=== PATIENT | female | born 1945 | race Hispanic/Latino ===

== ENCOUNTER 2018-06-01 06:45 | Day surgery (SDC) | payer MEDICARE ==
[2018-05-30 15:40] VITALS: BP 184/67
[2018-05-30 16:01] LABS: BASOPHILS % (AUTO) 0.6 % (0.0-5.0); EOSINOPHILS % (AUTO) 2.8 % (0.0-8.0); HEMATOCRIT 33.2 % (36-48); LYMPHOCYTES % (AUTO) 25.7 % (21.0-51.0); MEAN CORPUSCULAR HEMOGLOBIN 31.6 pg (27.0-33.0); MEAN CORPUSCULAR HGB CONC 34.1 g/dL (32.0-36.0); MEAN CORPUSCULAR VOLUME 92.6 fL (79-99); MONOCYTES % (AUTO) 5.5 % (3.0-13.0); NEUTROPHILS % (AUTO) 65.4 % (40.0-77.0); PLATELET COUNT (AUTO) 188 K/uL (130-400); RED BLOOD CELL COUNT(AUTO) 3.59 MIL/uL (4.00-5.50); RED CELL DISTRIBUTION WIDTH 12.9 % (11.0-15.5); WHITE BLOOD COUNT (AUTO) 5.7 K/uL (4.8-10.8)
[2018-05-30 16:05] LABS: APPEARANCE,URINE Clear (CLEAR); BILIRUBIN,URINE Negative (NEGATIVE); COLOR,URINE Yellow (YELLOW); GLUCOSE, URINE (UA) Negative (NEGATIVE); KETONES,URINE Negative (NEGATIVE); LEUKOCYTE ESTERASE ,URINE Trace (NEGATIVE); NITRATE,URINE Negative (NEGATIVE); OCCULT BLOOD,URINE Negative (NEGATIVE); PROTEIN,URINE Negative (NEGATIVE); UROBILINOGEN,URINE 0.2 mg/dL (0.2-1.0)
[2018-05-30 16:13] LABS: CREATININE 1.1 mg/dL (0.5-1.5); POTASSIUM 4.9 mmol/L (3.5-5.1)
[2018-05-30 16:18] LABS: INR 0.94 (0.85-1.15); PARTIAL THROMBOPLASTIN TIME 28.6 SEC (26.3-35.5); PROTHROMBIN TIME 9.9 SEC (9.6-11.6)
[2018-05-30 16:43] LABS: RBC,URINE 0-1 /HPF (0-1)
[2018-05-30 16:44] LABS: BACTERIA,URINE Rare /HPF (None Seen); SQUAMOUS EPITHELIAL CELL,UR None Seen /HPF (0-2)
[2018-06-01] VITALS (17 sets, daily range): BP systolic 119–151; BP diastolic 40–79
[~2018-06-01] VITALS: Ht 154.9 cm; Wt 74.7 kg
[~2018-06-01 06:45] MED LIST: AEC81 PO; ATOR10TA69 PO; CARV6.25 PO; CITA10TA7 PO; ISOS30TA6 PO; LISI40TA4 PO; METF-444 PO; SODIUM CHLORIDE 0.9% 500ML 500 ML IV SCH
[2018-06-01] MEDS ORDERED: SODIUM CHLORIDE 0.9% 1000ML 1,000 ML IV ONE (07:18)
[2018-06-01] MEDS ORDERED: NITROGLYCERIN 5 MG/ML 10 ML VIAL IV ONE (09:29)
[2018-06-01] MEDS ORDERED: IOHEXOL-350 50ML VIAL IV ONE (09:29)
[2018-06-01] MEDS ORDERED: LIDOCAINE HCL 2% 20ML ONE (09:29)
[2018-06-01] MEDS ORDERED: IOHEXOL 350 MG/ML 100ML INFUS..BTL IV ONE (09:29)
[2018-06-01] MEDS ORDERED: HEPARIN SODIUM 1000UNIT/ML 10ML VIAL ONE (10:11)
[2018-06-01] MEDS ORDERED: LABETALOL HCL 5 MG/ML 20ML VIAL IV ONE (10:32)
[2018-06-01] MEDS ORDERED: SODIUM CHLORIDE 0.9% 1000ML 1,000 ML IV SCH (10:42)
[2018-06-01] MEDS ORDERED: HYDRALAZINE HCL 20 MG/ML VIAL IV PRN (10:45)
[2018-06-01] MEDS ORDERED: GLUCAGON 1MG KIT 1 MG ML IM PRN (10:45)
[2018-06-01] MEDS ORDERED: DEXTROSE 50%-WATER 50 ML DISP.SYRIN IV PRN (10:45)
[2018-06-01] MEDS ORDERED: INSULIN HUMULIN R 100 UNIT/ML 3ML SQ SCH (11:30)
== END 2018-06-01 15:45 | disposition home or self-care (01) ==
LOC: DAH 06:45
PROVIDERS: ATTEND Internal Medicine Cardiovascular Disease
DX: I25.118 Atherosclerotic heart disease of native coronary artery with other forms of angina pectoris (principal); I11.0 Hypertensive heart disease with heart failure; I50.33 Acute on chronic diastolic (congestive) heart failure; I05.0 Rheumatic mitral stenosis; Z68.30 Body mass index [BMI] 30.0-30.9, adult; E11.9 Type 2 diabetes mellitus without complications; E78.5 Hyperlipidemia, unspecified; Z79.899 Other long term (current) drug therapy; Z79.84 Long term (current) use of oral hypoglycemic drugs; Z95.0 Presence of cardiac pacemaker; I87.2 Venous insufficiency (chronic) (peripheral)
CPT/HCPCS: 36415; 71045; 80048; 81001; 82948 ×2; 85025; 85610; 85730; 93005; 93460; A4606; C1894 ×3; J1644 ×2; J3490 ×3; J7030; Q9965; Q9967 ×2

== ENCOUNTER 2022-05-04 07:24 | Observation (INO) | payer OTHER, MEDICARE ==
[2022-05-02 16:06] LABS: BASOPHILS % (AUTO) 0.9 % (0.0-5.0); EOSINOPHILS % (AUTO) 1.4 % (0.0-8.0); HEMATOCRIT 36.9 % (36-48); LYMPHOCYTES % (AUTO) 9.8 % (21.0-51.0); MEAN CORPUSCULAR HEMOGLOBIN 30.2 pg (27.0-33.0); MEAN CORPUSCULAR HGB CONC 30.9 g/dL (32.0-36.0); MEAN CORPUSCULAR VOLUME 97.9 fL (79-99); MONOCYTES % (AUTO) 4.9 % (3.0-13.0); NEUTROPHILS % (AUTO) 82.6 % (40.0-77.0); PLATELET COUNT (AUTO) 224 K/uL (130-400); RED BLOOD CELL COUNT(AUTO) 3.77 MIL/uL (4.00-5.50); RED CELL DISTRIBUTION WIDTH 14.7 % (11.0-15.5); WHITE BLOOD COUNT (AUTO) 5.7 K/uL (4.8-10.8)
[2022-05-02 16:18] LABS: INR 1.06 (0.85-1.15); PROTHROMBIN TIME 11.5 SEC (9.6-11.6)
[2022-05-02 16:19] LABS: CREATININE 1.5 mg/dL (0.5-1.5)
[2022-05-02 16:20] LABS: PARTIAL THROMBOPLASTIN TIME 29.1 SEC (26.3-35.5)
[2022-05-03 12:03] VITALS: BP 162/62
[~2022-05-04] VITALS: Ht 152.4 cm; Wt 62.9 kg
[2022-05-04] VITALS (17 sets, daily range): BP systolic 123–176; BP diastolic 50–98
[~2022-05-04 07:24] MED LIST changes: +ALEN70TA80 PO; -CARV6.25 PO; -CITA10TA7 PO; +CITA10TA89 PO; +DOCU100C33 PO; +FERS325 PO; +FURO20TA4 PO; -ISOS30TA6 PO; +ISOS30TA92 PO; -LISI40TA4 PO; +LISI40TA9 PO; -METF-444 PO; +POTA10CA44 PO; -SODIUM CHLORIDE 0.9% 500ML 500 ML IV SCH
[2022-05-04] MEDS ORDERED: 0.9%NACL 1000ML 1,000 ML IV ONE (08:04)
[2022-05-04] MEDS ORDERED: LIDOCAINE HCL 1% 20 ML VIAL ONE (11:25)
[2022-05-04] MEDS ORDERED: MEPERIDINE-PF 25 MG/ML SYG ONE ×2 (11:26→12:38)
[2022-05-04] MEDS ORDERED: MIDAZOLAM HCL 1 MG/ML 2ML VIAL ONE ×2 (11:26→12:38)
[2022-05-04] MEDS ORDERED: BUPIVACAINE/PF 0.25% 30ML VIAL IJ ONE (11:26)
[2022-05-04] MEDS ORDERED: CEFAZOLIN SODIUM 1 GM VIAL ONE (11:26)
[2022-05-04] MEDS ORDERED: BACITRACIN 1 EACH PACKET TP ONE (13:08)
[2022-05-04] MEDS ORDERED: TRAM50TA4 PO (13:53)
[2022-05-04] MEDS ORDERED: ACETAMINOPHEN 500 MG TABLET PO PRN (14:00)
[2022-05-04] MEDS ORDERED: ACETAMINOPHEN WITH CODEINE 1 TAB TAB PO PRN (14:00)
[2022-05-04] MEDS ORDERED: FUROSEMIDE 20MG VIAL ONE (16:44)
[2022-05-04] MEDS ORDERED: FUROSEMIDE 20MG VIAL IV ONE (17:00)
[2022-05-04] MEDS ORDERED: DOCUSATE SODIUM 100 MG CAP PO PRN (17:00)
[2022-05-04] MEDS ORDERED: TRAMADOL HCL 50 MG TABLET PO PRN (17:00)
[2022-05-04 18:25] LABS: HEMATOCRIT 34.3 % (36-48); MEAN CORPUSCULAR HEMOGLOBIN 30.4 pg (27.0-33.0); MEAN CORPUSCULAR HGB CONC 31.8 g/dL (32.0-36.0); MEAN CORPUSCULAR VOLUME 95.5 fL (79-99); PLATELET COUNT (AUTO) 201 K/uL (130-400); RED BLOOD CELL COUNT(AUTO) 3.59 MIL/uL (4.00-5.50); RED CELL DISTRIBUTION WIDTH 14.8 % (11.0-15.5); WHITE BLOOD COUNT (AUTO) 7.1 K/uL (4.8-10.8)
[2022-05-04 18:35] LABS: BASOPHILS % (AUTO) 0.6 % (0.0-5.0); LYMPHOCYTES % (AUTO) 6.6 % (21.0-51.0); MONOCYTES % (AUTO) 3.9 % (3.0-13.0); NEUTROPHILS % (AUTO) 87.6 % (40.0-77.0)
[2022-05-04 18:51] LABS: ALBUMIN 3.2 g/dL (3.5-5.0); CREATININE 1.5 mg/dL (0.5-1.5); POTASSIUM 4.6 mmol/L (3.5-5.1); THYROID STIMULATING HORMONE 9.35 uIU/mL (0.36-3.74); TOTAL PROTEIN, SERUM 7.2 g/dL (6.0-8.3)
[2022-05-04 19:12] LABS: HEMOGLOBIN A1C 6.7 % (4.0-6.0)
[2022-05-04] MEDS: BUDESONIDE 0.25 MG/2 ML INH IH SCH (19:57)
[2022-05-04] MEDS: FERROUS SULFATE 325 MG TABLET.DR PO SCH (20:22)
[2022-05-04] MEDS: ATORVASTATIN 10 MG TABLET PO SCH (20:22)
[2022-05-04] MEDS: CITALOPRAM 20 MG TABLET PO SCH (20:22)
[2022-05-04] MEDS: IPRATROPIUM/ALBUTEROL SULFATE 3 ML SOLUTION IH SCH (23:02)
[2022-05-05 03:59] LABS: BASOPHILS % (AUTO) 1.2 % (0.0-5.0); EOSINOPHILS % (AUTO) 1.4 % (0.0-8.0); HEMATOCRIT 33.9 % (36-48); LYMPHOCYTES % (AUTO) 11.1 % (21.0-51.0); MEAN CORPUSCULAR HEMOGLOBIN 30.1 pg (27.0-33.0); MEAN CORPUSCULAR HGB CONC 31.3 g/dL (32.0-36.0); MEAN CORPUSCULAR VOLUME 96.3 fL (79-99); MONOCYTES % (AUTO) 4.9 % (3.0-13.0); NEUTROPHILS % (AUTO) 81.2 % (40.0-77.0); PLATELET COUNT (AUTO) 195 K/uL (130-400); RED BLOOD CELL COUNT(AUTO) 3.52 MIL/uL (4.00-5.50); RED CELL DISTRIBUTION WIDTH 14.7 % (11.0-15.5); WHITE BLOOD COUNT (AUTO) 4.9 K/uL (4.8-10.8)
[2022-05-05 04:11] LABS: CREATININE 1.4 mg/dL (0.5-1.5); MAGNESIUM 2.1 mg/dL (1.80-2.40); PHOSPHORUS 3.8 mg/dL (2.5-4.9); POTASSIUM 4.3 mmol/L (3.5-5.1)
[2022-05-05 05:17] VITALS: BP 151/79
[2022-05-05] MEDS: IPRATROPIUM/ALBUTEROL SULFATE 3 ML SOLUTION IH SCH ×4 (06:29→23:02)
[2022-05-05] MEDS: BUDESONIDE 0.25 MG/2 ML INH IH SCH ×2 (06:30→19:38)
[2022-05-05 07:00] VITALS: BP 136/68
[2022-05-05] MEDS: FUROSEMIDE 40MG VIAL IV SCH ×2 (09:17→21:12)
[2022-05-05] MEDS: ASPIRIN 81 MG EC TAB PO SCH (09:18)
[2022-05-05] MEDS: LISINOPRIL 40 MG TABLET PO SCH (09:18)
[2022-05-05] MEDS: POTASSIUM CHLORIDE 10MEQ SR TAB PO SCH (09:18)
[2022-05-05] MEDS: ISOSORBIDE MONO 30MG SR TAB PO SCH (09:18)
[2022-05-05 11:00] VITALS: BP 139/63
[2022-05-05] MEDS ORDERED: CLOPIDOGREL 300MG TAB PO SCH (11:00)
[2022-05-05] MEDS: HEPARIN 5,000 UNIT VIAL SQ SCH ×2 (12:42→19:41)
[2022-05-05 16:00] VITALS: BP 139/55
[2022-05-05] MEDS: FERROUS SULFATE 325 MG TABLET.DR PO SCH (19:40)
[2022-05-05] MEDS: CITALOPRAM 20 MG TABLET PO SCH (19:40)
[2022-05-05] MEDS: ATORVASTATIN 10 MG TABLET PO SCH (19:41)
[2022-05-05 20:32] VITALS: BP 143/68
[2022-05-06 00:17] VITALS: BP 147/60
[2022-05-06] MEDS: HEPARIN 5,000 UNIT VIAL SQ SCH ×2 (02:48→10:18)
[2022-05-06 03:47] LABS: BASOPHILS % (AUTO) 0.7 % (0.0-5.0); EOSINOPHILS % (AUTO) 2.3 % (0.0-8.0); HEMATOCRIT 31.5 % (36-48); LYMPHOCYTES % (AUTO) 9.5 % (21.0-51.0); MEAN CORPUSCULAR HEMOGLOBIN 30.2 pg (27.0-33.0); MEAN CORPUSCULAR HGB CONC 31.1 g/dL (32.0-36.0); MEAN CORPUSCULAR VOLUME 96.9 fL (79-99); MONOCYTES % (AUTO) 5.6 % (3.0-13.0); NEUTROPHILS % (AUTO) 81.5 % (40.0-77.0); PLATELET COUNT (AUTO) 200 K/uL (130-400); RED BLOOD CELL COUNT(AUTO) 3.25 MIL/uL (4.00-5.50); RED CELL DISTRIBUTION WIDTH 14.7 % (11.0-15.5); WHITE BLOOD COUNT (AUTO) 5.6 K/uL (4.8-10.8)
[2022-05-06 04:00] LABS: CREATININE 1.6 mg/dL (0.5-1.5); POTASSIUM 3.8 mmol/L (3.5-5.1)
[2022-05-06 04:20] VITALS: BP 141/61
[2022-05-06] MEDS: IPRATROPIUM/ALBUTEROL SULFATE 3 ML SOLUTION IH SCH ×2 (07:07→11:57)
[2022-05-06] MEDS: BUDESONIDE 0.25 MG/2 ML INH IH SCH (07:07)
[2022-05-06 08:00] VITALS: BP 149/68
[2022-05-06] MEDS ORDERED: CLOPIDOGREL 75MG TAB PO SCH (09:00)
[2022-05-06] MEDS: ISOSORBIDE MONO 30MG SR TAB PO SCH (10:08)
[2022-05-06] MEDS: FUROSEMIDE 40MG VIAL IV SCH (10:08)
[2022-05-06] MEDS: ASPIRIN 81 MG EC TAB PO SCH (10:08)
[2022-05-06] MEDS: LISINOPRIL 40 MG TABLET PO SCH (10:08)
[2022-05-06] MEDS: POTASSIUM CHLORIDE 10MEQ SR TAB PO SCH (10:08)
[2022-05-06 11:46] VITALS: BP 135/54
[2022-05-06] MEDS ORDERED: FURO20TA6 PO (15:08)
[2022-05-06] MEDS ORDERED: CLOP75TA14 PO (15:08)
[2022-05-07] MEDS ORDERED: FUROSEMIDE 20 MG TABLET PO SCH (09:00)
== END 2022-05-06 16:06 | disposition home or self-care (01) ==
LOC: DAH 07:24 → DAHIP 07:25 → DAH 07:25 → 2AH 17:12
PROVIDERS: ADMIT Internal Medicine; ATTEND Internal Medicine
DX: I25.10 Atherosclerotic heart disease of native coronary artery without angina pectoris (principal); I49.5 Sick sinus syndrome; I35.0 Nonrheumatic aortic (valve) stenosis; I05.0 Rheumatic mitral stenosis; I12.9 Hypertensive chronic kidney disease with stage 1 through stage 4 chronic kidney disease, or unspecified chronic kidney disease; N18.4 Chronic kidney disease, stage 4 (severe); E11.22 Type 2 diabetes mellitus with diabetic chronic kidney disease; E87.1 Hypo-osmolality and hyponatremia; I24.8 Other forms of acute ischemic heart disease; I25.2 Old myocardial infarction; I47.1 Supraventricular tachycardia; Z95.810 Presence of automatic (implantable) cardiac defibrillator; Z79.82 Long term (current) use of aspirin; Z79.84 Long term (current) use of oral hypoglycemic drugs
CPT/HCPCS: 80048 ×3; 85025 ×4; 85610; 85730; 36415 ×4; 93005; 33228; 96374; 96361; 83036; 84443; 82550; 83874; 84484 ×3; 80053; 82948 ×6; 83605; 71045 ×2; 94640 ×9; 94664; 84145; 96376 ×2; 96372 ×2; 96375; 83735; 84100; 84439; C1785; G0378 ×44; J0690; J7030; J3490; J2250 ×2; J1940 ×5; J2175 ×2; A4215; A4223 ×3; A4222; A4221; A4663; A4216; A4606; J1644 ×4; 99156; 99157